=== PATIENT | male | born 1950 | race Caucasian/White ===

== ENCOUNTER 2020-07-26 01:45 | Emergency (ER) | payer MEDICARE, BC ==
[2020-07-26 01:54] VITALS: BP 131/80; PULSE 100
[2020-07-26] MEDS ORDERED: Sodium Chloride 0.9% 10 ML Syringe FLUSH PRN (01:57)
[2020-07-26 03:02] LABS: CORONAVIRUS COVID-19 NAA NEGATIVE (NEGATIVE)
[2020-07-26] MEDS ORDERED: Sodium Chloride 0.9% 1,000 ML IV ONE (03:28)
[2020-07-26] MEDS ORDERED: cefTRIAXone 2 GM in Sodium Chloride 0.9% 100 ML IV ONE (03:29)
[2020-07-26] MEDS ORDERED: Albuterol 6.7 GM Inhaler INH ONE (03:34)
[2020-07-26] MEDS ORDERED: Iopamidol 755 Mg/ML 100 ML Bottle IVPUSH ONE (03:52)
[2020-07-26] MEDS ORDERED: Sodium Chloride 0.9% 100 ML IV SCH (04:00)
--- NOTE | 2020-07-26 04:10 | EDM.PDOC ---
ED HPI GENERAL MEDICAL PROBLEM - General Chief Complaint: Respiratory Problem Stated Complaint: [facility] Time Seen by Provider: 07/26/20 01:50 Source of Information: Reports: Patient, EMS History Limitations: Reports: No Limitations - History of Present Illness INITIAL COMMENTS - FREE TEXT/NARRATIVE: The patient presents by [facility] for a cough and shortness of breath. Last week he developed cellulitis in his right little finger. He was on kelfex. He then started having a temp and a cough a few days ago. He has been short of breath but had no loss of taste or smell. He has no chest pain. He has no abdominal pain, nausea or vomiting. His has a pulse oximeter and she checked it this morning and his oxygen saturations were in the upper 80s. EMS was called and they checked his oxygen saturations and they were in the upper 90s. He did well with 2L of oxygen. He has not been tested for COVID. He does have prostate cancer and was treated last year. Onset: Gradual Duration: Day(s): Severity: Moderate Improves with: Reports: None Worsens with: Reports: None Associated Symptoms: Reports: Cough, Fever/Chills, Shortness of Breath. Denies: Chest Pain, Headaches, Nausea/Vomiting - Related Data Allergies Allergy/AdvReac Type Severity Reaction Status Date / Time No Known Allergies Allergy Verified 07/26/20 01:54 Home Meds: Home Meds Losartan Potassium 100 mg PO DAILY 07/26/20 [History] amLODIPine [Norvasc] 5 mg PO DAILY 07/26/20 [History] cephALEXin [Keflex] 500 mg PO QID 07/26/20 [History] hydroCHLOROthiazide [Hydrochlorothiazide] 12.5 mg PO DAILY 07/26/20 [History] predniSONE [Prednisone] 40 mg PO DAILY #10 tablet 07/26/20 [Rx] Past Medical History Cardiovascular History: Reports: Hypertension - Past Surgical History Musculoskeletal Surgical History: Reports: Other (See Below) Other Musculoskeletal Surgeries/Procedures:: I&D foot Social & Family History - Family History Family Medical History: No Pertinent Family History - Tobacco Use Tobacco Use Status *Q: Never Tobacco User Second Hand Smoke Exposure: No - Caffeine Use Caffeine Use: Reports: Coffee - Recreational Drug Use Recreational Drug Use: No ED ROS GENERAL - Review of Systems Review Of Systems: See Below Constitutional: Reports: Fever, Chills HEENT: Reports: No Symptoms Respiratory: Reports: Shortness of Breath, Cough Cardiovascular: Reports: No Symptoms Endocrine: Reports: No Symptoms GI/Abdominal: Reports: No Symptoms : Reports: No Symptoms Musculoskeletal: Reports: No Symptoms ED EXAM, GENERAL - Physical Exam Exam: See Below Exam Limited By: No Limitations General Appearance: Alert, No Apparent Distress Ears: Normal External Exam Nose: Normal Inspection Head: Atraumatic, Normocephalic Neck: Normal Inspection Respiratory/Chest: No Respiratory Distress, Lungs Clear, Normal Breath Sounds Cardiovascular: Regular Rate, Rhythm, No Edema, No Murmur GI/Abdominal: Soft, Non-Tender, No Organomegaly, No Mass Back Exam: Normal Inspection Extremities: Normal Inspection Course - Vital Signs Last Recorded V/S: Last Vital Signs Temp 98.9 F 07/26/20 01:50 Pulse 100 07/26/20 01:50 Resp 17 07/26/20 01:50 BP 131/80 07/26/20 01:50 Pulse Ox 95 07/26/20 04:26 - Orders/Labs/Meds Orders: Active Orders 24 hr Category Date Time Status Cardiac Monitoring [RC] . DIRECTED Care 07/26/20 01:57 Active Oxygen Therapy [RC] PRN Care 07/26/20 01:58 Active Peripheral IV Care [RC] . DIRECTED Care 07/26/20 01:58 Active RT Post Treatment Assessment [RC] Click to Edit Care 07/26/20 03:35 Active RT Pre-Treatment Assessment [RC] Click to Edit Care 07/26/20 03:35 Active Ang Chest [CT] Stat Exams 07/26/20 03:28 Taken Chest 1V Frontal [CR] Stat Exams 07/26/20 01:58 Taken CULTURE BLOOD [BC] Stat Lab 07/26/20 03:50 Received CULTURE BLOOD [BC] Stat Lab 07/26/20 03:55 Received Sodium Chloride 0.9% [Normal Saline] 100 ml Med 07/26/20 04:00 Active IV ASDIRECTED Sodium Chloride 0.9% [Saline Flush] Med 07/26/20 01:57 Active 10 ml FLUSH ASDIRECTED PRN Blood Culture x2 Reflex Set [OM.PC] Stat Oth 07/26/20 03:29 Ordered Peripheral IV Insertion Adult [OM.PC] Stat Oth 07/26/20 01:57 Ordered Medication Orders Sodium Chloride (Normal Saline) 100 mls @ 100 mls/min IV ASDIRECTED BRAYDEN Last Admin: 07/26/20 04:26 Dose: 100 mls/min Documented by: HARVINDER Sodium Chloride (Saline Flush) 10 ml FLUSH ASDIRECTED PRN PRN Reason: Keep Vein Open Last Admin: 07/26/20 02:13 Dose: 10 ml Documented by: MERCEDEZ Labs: Laboratory Tests 07/26/20 07/26/20 07/26/20 Range/Units 02:10 02:10 02:10 WBC 10.16 H (4.23-9.07) K/mm3 RBC 3.53 L (4.63-6.08) M/mm3 Hgb 11.4 L (13.7-17.5) gm/dl Hct 34.8 L (40.1-51.0) % MCV 98.6 H (79.0-92.2) fl MCH 32.3 H (25.7-32.2) pg MCHC 32.8 (32.2-35.5) g/dl RDW Std Deviation 48.0 H (35.1-43.9) fL Plt Count 137 L (163-337) K/mm3 MPV 9.8 (9.4-12.3) fl Neut % (Auto) 81.7 H (34.0-67.9) % Lymph % (Auto) 7.3 L (21.8-53.1) % [place] % (Auto) 7.6 (5.3-12.2) % Eos % (Auto) 2.1 (0.8-7.0) Baso % (Auto) 0.8 (0.1-1.2) % Neut # (Auto) 8.31 H (1.78-5.38) K/mm3 Lymph # (Auto) 0.74 L (1.32-3.57) K/mm3 [place] # (Auto) 0.77 (0.30-0.82) K/mm3 Eos # (Auto) 0.21 (0.04-0.54) K/mm3 Baso # (Auto) 0.08 (0.01-0.08) K/mm3 Manual Slide Review Abnormal smear D-Dimer, Quantitative 4.21 H (0.19-0.50) mg/L Sodium 134 L (136-145) mEq/L Potassium 3.4 L (3.5-5.1) mEq/L Chloride 98 (98-107) mEq/L Carbon Dioxide 30 (21-32) mEq/L Anion Gap 9.4 (5-15) BUN 23 H (7-18) mg/dL Creatinine 1.8 H (0.7-1.3) mg/dL Est Cr Clr Drug Dosing TNP Estimated GFR (MDRD) 38 (>60) mL/min BUN/Creatinine Ratio 12.8 L (14-18) Glucose 133 H (80-115) mg/dL Lactic Acid (0.4-2.0) mmol/L Calcium 8.7 (8.5-10.1) mg/dL Ferritin (26-388) ng/ml Total Bilirubin 1.8 H (0.2-1.0) mg/dL AST 38 H (15-37) U/L ALT 135 H (16-63) U/L Alkaline Phosphatase 171 H (46-116) U/L Lactate Dehydrogenase 198 (85-227) U/L C-Reactive Protein 14.8 H* (<1.0) mg/dL Total Protein 7.1 (6.4-8.2) g/dl Albumin 2.9 L (3.4-5.0) g/dl Globulin 4.2 gm/dL Albumin/Globulin Ratio 0.7 L (1-2) Influenza Type A RNA (NEGATIVE) Influenza Type B RNA (NEGATIVE) SARS-CoV-2 RNA (ALO) (NEGATIVE) 07/26/20 07/26/20 07/26/20 Range/Units 02:10 02:15 03:50 WBC (4.23-9.07) K/mm3 RBC (4.63-6.08) M/mm3 Hgb (13.7-17.5) gm/dl Hct (40.1-51.0) % MCV (79.0-92.2) fl MCH (25.7-32.2) pg MCHC (32.2-35.5) g/dl RDW Std Deviation (35.1-43.9) fL Plt Count (163-337) K/mm3 MPV (9.4-12.3) fl Neut % (Auto) (34.0-67.9) % Lymph % (Auto) (21.8-53.1) % Blackford % (Auto) (5.3-12.2) % Eos % (Auto) (0.8-7.0) Baso % (Auto) (0.1-1.2) % Neut # (Auto) (1.78-5.38) K/mm3 Lymph # (Auto) (1.32-3.57) K/mm3 [place] # (Auto) (0.30-0.82) K/mm3 Eos # (Auto) (0.04-0.54) K/mm3 Baso # (Auto) (0.01-0.08) K/mm3 Manual Slide Review D-Dimer, Quantitative (0.19-0.50) mg/L Sodium (136-145) mEq/L Potassium (3.5-5.1) mEq/L Chloride (98-107) mEq/L Carbon Dioxide (21-32) mEq/L Anion Gap (5-15) BUN (7-18) mg/dL Creatinine (0.7-1.3) mg/dL Est Cr Clr Drug Dosing Estimated GFR (MDRD) (>60) mL/min BUN/Creatinine Ratio (14-18) Glucose (80-115) mg/dL Lactic Acid 1.0 (0.4-2.0) mmol/L Calcium (8.5-10.1) mg/dL Ferritin 1555 H (26-388) ng/ml Total Bilirubin (0.2-1.0) mg/dL AST (15-37) U/L ALT (16-63) U/L Alkaline Phosphatase (46-116) U/L Lactate Dehydrogenase (85-227) U/L C-Reactive Protein (<1.0) mg/dL Total Protein (6.4-8.2) g/dl Albumin (3.4-5.0) g/dl Globulin gm/dL Albumin/Globulin Ratio (1-2) Influenza Type A RNA Negative (NEGATIVE) Influenza Type B RNA Negative (NEGATIVE) SARS-CoV-2 RNA (ALO) Negative (NEGATIVE) Meds: Medications Generic Name Dose Route Start Last Admin Trade Name Freq PRN Reason Stop Dose Admin Sodium Chloride 100 mls @ 100 mls/min 07/26/20 04:00 07/26/20 04:26 Normal Saline IV 100 mls/min ASDIRECTED BRAYDEN Administration Sodium Chloride 10 ml 07/26/20 01:57 07/26/20 02:13 Saline Flush FLUSH 10 ml ASDIRECTED PRN Administration Keep Vein Open Discontinued Medications Generic Name Dose Route Start Last Admin Trade Name Salvadorq PRN Reason Stop Dose Admin Albuterol 0 gm 07/26/20 03:34 07/26/20 04:24 Proventil Hfa INH 07/26/20 03:35 2 dose ONETIME ONE Administration Sodium Chloride 1,000 mls @ 1,000 mls/hr 07/26/20 03:28 07/26/20 03:30 Normal Saline IV 07/26/20 04:27 1,000 mls/hr ONETIME ONE Administration Ceftriaxone Sodium 2 gm/ 100 mls @ 200 mls/hr 07/26/20 03:29 07/26/20 04:22 Sodium Chloride IV 07/26/20 03:58 200 mls/hr ONETIME ONE Administration Iopamidol 100 ml 07/26/20 03:52 07/26/20 04:26 Isovue-370 (76%) IVPUSH 07/26/20 03:53 100 ml ONETIME ONE Administration - Re-Assessments/Exams Free Text/Narrative Re-Assessment/Exam: 07/26/20 04:55 I ordered oxygen PRN, IV saline lock, CXR, labs and COVID 19. His WBC was slightly elevated at 10.16. His Hgb is a little low at 11.4. His D-dimer is elevated at 4.21. His Na is a little low at 134. His K is low at 3.4. His creatinine is elevated at 1.8 with a low GFR of 38. His glucose was 133. His ferritin is elevated at 1555. His LDH was normal. His total bili is elevated at 1.8. His AST is elevated at 38. His ALT is elevated at 135. His Alk Phos is elevated at 171. His CRP is elevated at 14.8. His CXR did look like pneumonia in the RLL. I ordered blood cultures, lactic acid and rocphin 2 grams IV. His D-dimer is also elevated. I ordered a CT angio of his chest. His kidneys are not working so good so I ordered a liter of NS. COVID 19 and influenza are negative. The CT of his chest shows no definite evidence for acute pulmonary embolic disease, although the study is somewhat limited due to suboptimal contrast bolus administration. Gallstone in the gallbladder lumen without acute cholec ystitis. Fatty infiltration of the liver. Splenomegaly. There is no pneumonia on CT. I feel he has some bronchitis going on. I will get him an inhaler and prednisone. I will give him a dose of prednisone here. He is also on keflex for his finger. Departure - Departure Time of Disposition: 05:10 Disposition: Home, Self-Care 01 Condition: Good Clinical Impression: Bronchitis - Discharge Information *PRESCRIPTION DRUG MONITORING PROGRAM REVIEWED*: Not Applicable *COPY OF PRESCRIPTION DRUG MONITORING REPORT IN PATIENT SHAILESH: Not Applicable Prescriptions: predniSONE [Prednisone] 40 mg PO DAILY #10 tablet Referrals: Mervin Navarrete MD [Ordering Only Provider] - 1 Week Forms: ED Department Discharge Additional Instructions: Keep taking the keflex for your finger. Use the albuterol 2 puffs every 6 hours as needed for shortness of breath. Take the prednisone 40mg daily for 5 days. Follow up with Dr Navarrete within a week. Please return if you are worse. Sepsis Event Note (ED) - Evaluation Sepsis Screening Result: Possible Sepsis Risk - Focused Exam Vital Signs: Vital Signs Temp Pulse Resp BP Pulse Ox Pulse Ox 07/26/20 04:26 95 07/26/20 02:26 97 07/26/20 01:50 98.9 F 100 17 131/80 94 L - My Orders Last 24 Hours: My Active Orders 07/26/20 01:57 Cardiac Monitoring [RC] . DIRECTED Sodium Chloride 0.9% [Saline Flush] 10 ml FLUSH ASDIRECTED PRN Peripheral IV Insertion Adult [OM.PC] Stat 07/26/20 01:58 Oxygen Therapy [RC] PRN Peripheral IV Care [RC] . DIRECTED Chest 1V Frontal [CR] Stat 07/26/20 03:28 Ang Chest [CT] Stat 07/26/20 03:29 Blood Culture x2 Reflex Set [OM.PC] Stat 07/26/20 03:35 RT Post Treatment Assessment [RC] Click to Edit RT Pre-Treatment Assessment [RC] Click to Edit 07/26/20 03:50 CULTURE BLOOD [BC] Stat 07/26/20 03:55 CULTURE BLOOD [BC] Stat 07/26/20 04:00 Sodium Chloride 0.9% [Normal Saline] 100 ml IV ASDIRECTED - Assessment/Plan Last 24 Hours: My Active Orders 07/26/20 01:57 Cardiac Monitoring [RC] . DIRECTED Sodium Chloride 0.9% [Saline Flush] 10 ml FLUSH ASDIRECTED PRN Peripheral IV Insertion Adult [OM.PC] Stat 07/26/20 01:58 Oxygen Therapy [RC] PRN Peripheral IV Care [RC] . DIRECTED Chest 1V Frontal [CR] Stat 07/26/20 03:28 Ang Chest [CT] Stat 07/26/20 03:29 Blood Culture x2 Reflex Set [OM.PC] Stat 07/26/20 03:35 RT Post Treatment Assessment [RC] Click to Edit RT Pre-Treatment Assessment [RC] Click to Edit 07/26/20 03:50 CULTURE BLOOD [BC] Stat 07/26/20 03:55 CULTURE BLOOD [BC] Stat 07/26/20 04:00 Sodium Chloride 0.9% [Normal Saline] 100 ml IV ASDIRECTED
[2020-07-26] MEDS ORDERED: methylPREDNISolone Sodium Succinate 125 MG/2 ML SDV IVPUSH ONE (04:55)
--- NOTE | 2020-07-26 09:18 | CR ---
Chest: Portable view of the chest was obtained. Comparison: No prior chest x-ray is available. Findings: Heart is not enlarged. Minimal atelectasis is seen off the left cardiac apex. Lungs show no acute parenchymal change. Bony structures are grossly intact. Impression: 1. Minimal atelectasis. 2. Nothing acute is otherwise appreciated. Diagnostic code #2
--- NOTE | 2020-07-26 09:22 | CT ---
CT chest Technique: Multiple axial sections were obtained from above the lung apices inferiorly through the lung bases. Intravenous contrast was utilized. Study was performed as a pulmonary angiogram protocol. Findings: Pulmonary arteries are not optimally opacified for pulmonary embolism evaluation. No gross findings of pulmonary embolism within the main pulmonary arteries. Smaller pulmonary embolism could be missed. Heart is enlarged but shows no pericardial thickening. Thoracic aorta shows no aneurysm. No mediastinal adenopathy or hilar adenopathy is appreciated. Small cyst is noted within the right lobe of the liver measuring 2.6 cm in size. Liver also shows mild fatty infiltration. Large calcified gallstone is noted within the gallbladder. Spleen is enlarged extending below the inferior level of the study. Spleen size is difficult to accurately measure since it is not completely seen. Lung window settings were reviewed which show no acute parenchymal change. Bone window settings were reviewed which show mild degenerative change within the spine. No acute osseous finding is appreciated. Impression: 1. Suboptimal opacification of the pulmonary arteries. No findings of pulmonary embolism within the main pulmonary arteries. 2. Fatty infiltration within the liver with right liver cyst. 3. Large calcified gallstone within the gallbladder. 4. Enlarged spleen which is nonspecific. 5. Other findings believed to be incidental as noted above. Diagnostic code #3 I agree with preliminary report from [facility], finalized on 07/26/20, 5:47 AM [employer]
== END 2020-07-26 05:30 | disposition home or self-care (01) ==
LOC: JD.ED 01:45
DX: J40 Bronchitis, not specified as acute or chronic (principal); I10 Essential (primary) hypertension; D72.829 Elevated white blood cell count, unspecified; R79.1 Abnormal coagulation profile; R74.8 Abnormal levels of other serum enzymes; R79.82 Elevated C-reactive protein (CRP); Z79.899 Other long term (current) drug therapy; Z20.828 Contact with and (suspected) exposure to other viral communicable diseases
CPT/HCPCS: 0240U; 36415; 71045; 71275; 80053; 82728; 83605; 83615; 85025; 85379; 86140; 87040; 94640; 96365; 96375; 99285; A9270; J0696; J2930; J7030; J7050; Q9967